=== PATIENT | female | born 1930 | race Caucasian/White ===

== ENCOUNTER → 2016-09-21 | Outpatient (CLI) | payer MEDICARE, BC ==
[~2016-09-21] MED LIST: ACET-2321 PO; DOCU-168 PO; HYDR-4246 PO; MAG-37 PO; POLY17PO6 PO; QUET25TA73 PO; SERT100T PO; TETR15DR38 BOTH EYES
[2016-09-21 13:34] LABS: BLOOD, URINE 2+ (NEGATIVE); COLOR,URINE YELLOW (YELLOW); LEUKOCYTE ESTERASE ,URINE 2+ (NEGATIVE); NITRITE,URINE POSITIVE (NEGATIVE); UROBILINOGEN,URINE 0.2 EU/DL (NORMAL)
[2016-09-21 13:45] LABS: BACTERIA,URINE 3+ (NEGATIVE); WBC,URINE 50-200 /HPF (0-5)
== END ==
LOC: LABN.KB 13:18
PROVIDERS: ATTEND Family Medicine
DX: N39.0 Urinary tract infection, site not specified (principal); R82.90 Unspecified abnormal findings in urine; R82.99 Other abnormal findings in urine
CPT/HCPCS: 81001; 87086; 87088